=== PATIENT | male | born 1955 | race Asian ===

== ENCOUNTER 2023-06-01 15:37 | Outpatient (CLI) | payer BC ==
[~2023-06-01 15:37] MED LIST: Iopamidol 370 76% 100 ML VIAL ONE
== END 2023-06-01 15:38 | disposition home or self-care (01) ==
LOC: CSHCT 15:37
PROVIDERS: ATTEND Physician Assistant
DX: R10.9 Unspecified abdominal pain (principal); K82.9 Disease of gallbladder, unspecified; K75.9 Inflammatory liver disease, unspecified; J90 Pleural effusion, not elsewhere classified
CPT/HCPCS: 74178; 82565; Q9967